=== PATIENT | male | born 1980 | race Caucasian/White ===

== ENCOUNTER 2020-10-01 15:38 | Emergency (ER) | payer MEDICAID, OTHER ==
[~2020-10-01] VITALS: Ht 177.8 cm; Wt 104.0 kg
[2020-10-01 15:49] VITALS: BP 131/85
[2020-10-01] MEDS ORDERED: ACETAMINOPHEN 325MG TABLET PO ONE (17:00)
[2020-10-01] MEDS ORDERED: ACET-2708 MT (18:23)
[2020-10-01] MEDS ORDERED: IBUP-2029 MT (18:23)
[2020-10-01] MEDS ORDERED: TETANUS, DIPHTHERIA, PERTUSSIS VAC/PF 0.5ML (>7YR OLD) IM ONE (18:30)
[2020-10-01] MEDS ORDERED: BACITRACIN ZINC OINT UDPKT TOP ONE (18:30)
== END 2020-10-01 18:44 | disposition home or self-care (01) ==
LOC: ER 15:38
DX: S60.221A Contusion of right hand, initial encounter (principal); Z98.890 Other specified postprocedural states; Y93.89 Activity, other specified; Y92.89 Other specified places as the place of occurrence of the external cause; Y99.8 Other external cause status
CPT/HCPCS: 73130; 99283; A4565